=== PATIENT | male | born 1960 | race Hispanic/Latino ===

== ENCOUNTER → 2017-08-06 | Outpatient (CLI) | payer MEDICARE ==
[~2017-08-06] MED LIST: ACET1TAB12 PO; AMLO10TA2 PO; ASPI-1197 PO; CHOL100018 PO; CYAN10009 PO; FERR-82 PO; FOLI0.8T22 PO; FOLI1TAB15 PO; FURO40SO4 PO; INSU100I21 SQ; LISI30TA4 PO; LORA10CA9 PO; METO-409 PO; SERT50TA12 PO
== END | disposition home or self-care (01) ==
LOC: SHCH 11:20
PROVIDERS: ATTEND Internal Medicine Cardiovascular Disease
DX: I11.0 Hypertensive heart disease with heart failure (principal); I50.9 Heart failure, unspecified; I42.9 Cardiomyopathy, unspecified
CPT/HCPCS: 93306

== ENCOUNTER 2017-08-08 11:20 | Inpatient (IN) | payer MEDICARE ==
[~2017-08-08] VITALS: Ht 157.5 cm; Wt 83.6 kg
[2017-08-08 11:50] VITALS: BP 154/82
[2017-08-08] MEDS ORDERED: FOLI0.8T22 PO (12:29)
[2017-08-08] MEDS ORDERED: CHOL100018 PO (12:30)
[2017-08-08] MEDS ORDERED: ACETAMINOPHEN 325 MG TAB PO PRN (12:30)
[2017-08-08] MEDS ORDERED: GLUCAGON 1MG KIT 1 MG ML IM PRN (12:30)
[2017-08-08] MEDS ORDERED: DEXTROSE 50%-WATER 50 ML DISP.SYRIN IV PRN (12:30)
[2017-08-08] MEDS ORDERED: METO-409 PO (12:31)
[2017-08-08] MEDS ORDERED: AMLO10TA2 PO (12:32)
[2017-08-08] MEDS ORDERED: ASPI-1197 PO (12:33)
[2017-08-08] MEDS ORDERED: LISI30TA4 PO (12:34)
[2017-08-08] MEDS ORDERED: CYAN10009 PO (12:35)
[2017-08-08] MEDS ORDERED: FERR-82 PO (12:36)
[2017-08-08] MEDS ORDERED: FOLI1TAB15 PO (12:37)
[2017-08-08] MEDS ORDERED: LORA10CA9 PO (12:38)
[2017-08-08] MEDS ORDERED: FURO40SO4 PO (12:38)
[2017-08-08] MEDS ORDERED: SERT50TA12 PO (12:39)
[2017-08-08] MEDS ORDERED: INSU100I21 SQ (12:42)
[2017-08-08 12:49] LABS: HEMATOCRIT 22.9 % (42-54); MEAN CORPUSCULAR HGB CONC 35.7 g/dL (32.0-36.0); MEAN CORPUSCULAR VOLUME 83.9 fL (79-99); NUCLEATED RED BLOOD CELLS 0.1 % (0.0-0.19); PLATELET COUNT (AUTO) 154 K/uL (130-400); RED BLOOD CELL COUNT(AUTO) 2.73 MIL/uL (4.50-6.20); RED CELL DISTRIBUTION WIDTH 27.5 % (11.0-15.5); WHITE BLOOD COUNT (AUTO) 6.4 K/uL (4.8-10.8)
[2017-08-08 12:57] LABS: HEMOGLOBIN A1C 7.2 % (4.0-6.0)
[2017-08-08 13:00] LABS: CHOLESTEROL 93 mg/dL (<200); HDL CHOLESTEROL 43 mg/dL (29-71); LDL DIRECT 46 mg/dL (0-99); TRIGLYCERIDES 229 mg/dL (30-200)
[2017-08-08 13:01] LABS: ALBUMIN 3.5 g/dL (3.5-5.0); BILIRUBIN,TOTAL 1.6 mg/dL (0.2-1.0); TOTAL PROTEIN, SERUM 7.3 g/dL (6.0-8.3)
[2017-08-08 13:06] LABS: INR 0.95 (0.85-1.15); PARTIAL THROMBOPLASTIN TIME 23.8 SEC (26.3-35.5); PROTHROMBIN TIME 9.8 SEC (9.6-11.6)
[2017-08-08 14:33] LABS: RETICULOCYTE % (AUTO) 15.04 % (0.42-2.23)
[2017-08-08 15:08] LABS: % IRON SATURATION 37.4 % (30-44); FERRITIN 374 ng/mL (30-400); IRON, SERUM 64 mcg/dL (65-175); TOTAL IRON BINDING CAPACITY 171 mcg/dL (250-450)
[2017-08-08 16:00] VITALS: BP 172/81
[2017-08-08] MEDS: INSULIN HUMULIN R 100 UNIT/ML 3ML SQ SCH ×2 (16:29→21:00)
[2017-08-08 19:17] VITALS: BP 150/63
[2017-08-09] VITALS (23 sets, daily range): BP systolic 119–170; BP diastolic 59–77
[2017-08-09 03:59] LABS: MEAN CORPUSCULAR HEMOGLOBIN 30.5 pg (27.0-33.0); MEAN CORPUSCULAR HGB CONC 36.2 g/dL (32.0-36.0); MEAN CORPUSCULAR VOLUME 84.2 fL (79-99); NUCLEATED RED BLOOD CELLS 0.3 % (0.0-0.19); PLATELET COUNT (AUTO) 143 K/uL (130-400); RED BLOOD CELL COUNT(AUTO) 2.45 MIL/uL (4.50-6.20); RED CELL DISTRIBUTION WIDTH 27.3 % (11.0-15.5); WHITE BLOOD COUNT (AUTO) 7.9 K/uL (4.8-10.8)
[2017-08-09 04:07] LABS: CREATININE 1.8 mg/dL (0.5-1.5); POTASSIUM 4.1 mmol/L (3.5-5.1)
[2017-08-09 04:10] LABS: HEMATOCRIT 20.6 % (42-54)
[2017-08-09] MEDS: INSULIN HUMULIN R 100 UNIT/ML 3ML SQ SCH ×7 (06:14→20:28)
[2017-08-09] MEDS ORDERED: CEFUROXIME 1.5GM+NS 100ML 100 ML IV SCH (07:00)
[2017-08-09] MEDS ORDERED: HYDRALAZINE HCL 20 MG/ML VIAL IV PRN (07:45)
[2017-08-09] MEDS ORDERED: POTASSIUM CHLORIDE 20 MEQ ERTAB PO PRN (07:45)
[2017-08-09] MEDS ORDERED: LACTULOSE 20 GM/30 ML UDCUP PO PRN (07:45)
[2017-08-09] MEDS ORDERED: MORPHINE SULFATE 2 MG/ML 1ML SYG IV PRN (07:45)
[2017-08-09] MEDS ORDERED: POTASSIUM CHLORIDE 10% ELIXIR 20 MEQ/15 ML UDCUP PO PRN (07:45)
[2017-08-09] MEDS ORDERED: NITROGLYCERIN 0.4 MG SL TAB SL PRN (07:45)
[2017-08-09] MEDS ORDERED: GUAIFENESIN-DM 200/20 MG 10 ML PO PRN (07:45)
[2017-08-09] MEDS ORDERED: ACETAMINOPHEN 325 MG TAB PO PRN ×2 (07:45)
[2017-08-09] MEDS ORDERED: POTASSIUM CHLORIDE 20MEQ/100ML 100 ML IV PRN (07:45)
[2017-08-09] MEDS ORDERED: LIDOCAINE HCL-MPF 1% 2ML VIAL IVP PRN (07:45)
[2017-08-09] MEDS ORDERED: ONDANSETRON HCL 4 MG/2 ML VIAL IV PRN (07:45)
[2017-08-09] MEDS ORDERED: MAG HYDROX/AL HYDROX/SIMETH ES 30 ML SUSP UDCUP PO PRN (07:45)
[2017-08-09 08:27] LABS: INR 0.99 (0.85-1.15); PARTIAL THROMBOPLASTIN TIME 24.5 SEC (26.3-35.5); PROTHROMBIN TIME 10.2 SEC (9.6-11.6)
[2017-08-09] MEDS: CEFUROXIME SODIUM 1.5 GM VIAL IVP SCH ×2 (08:30→10:30)
[2017-08-09] MEDS ORDERED: SODIUM CHLORIDE 0.9% 1000ML 1,000 ML IV ONE (08:42)
[2017-08-09] MEDS: AMLODIPINE BESYLATE 5 MG TAB PO SCH (09:00)
[2017-08-09] MEDS: FOLIC ACID 1 MG TABLET PO SCH (09:00)
[2017-08-09] MEDS: METOPROLOL TARTRATE 50 MG TAB PO SCH ×2 (09:00→19:41)
[2017-08-09] MEDS: FAMOTIDINE 20MG TAB 20 MG TAB PO SCH ×2 (09:00→19:41)
[2017-08-09] MEDS: FERROUS SULFATE 325 MG TABLET.DR PO SCH (09:00)
[2017-08-09] MEDS ORDERED: PROPOFOL 10 MG/ML 20ML VIAL IV ONE (10:34)
[2017-08-09] MEDS ORDERED: FENTANYL CITRATE PF 50 MCG/1 ML 2ML VIAL ONE (10:36)
[2017-08-09] MEDS ORDERED: BACITRACIN 50,000 UNIT VIAL ONE (10:46)
[2017-08-09] MEDS ORDERED: THROMBIN-JMI 5000 UNIT/VIAL TP ONE (10:47)
[2017-08-09] MEDS ORDERED: BUPIVACAINE/PF 0.25% 30ML VIAL IJ ONE (11:01)
[2017-08-09] MEDS ORDERED: OCTYL 2-CYANOACRYLATE 1 EACH TP ONE (11:06)
[2017-08-09] MEDS ORDERED: MORPHINE SULFATE 4 MG/1ML SYG IVP PRN (12:45)
[2017-08-09 12:53] LABS: APPEARANCE BODY FLUID CLEAR (CLEAR); COLOR,BODY FLUID YELLOW (LT YELLOW); SPECIMENTYPE,BODY FLUID PERICARDIAL; TOTAL VOLUME,BODY FLUID 50 mL
[2017-08-09 12:54] LABS: BODY FLUID RBC 413 /cu. mm.; BODY FLUID WBC 443 /cu. mm.
[2017-08-09 13:40] LABS: BF LYMPHOCYTE 86 %; BF MESOTHELIAL 11 %; BF MONOCYTE 2 %
[2017-08-09 13:46] LABS: AMYLASE,BODY FLUID 13 U/L
[2017-08-09] MEDS: ACETAMINOPHEN-CODEINE 300/30MG TAB PO PRN (17:09)
[2017-08-09] MEDS: TRAMADOL HCL 50 MG TABLET PO PRN ×2 (19:42→20:34)
[2017-08-10] VITALS (24 sets, daily range): BP systolic 87–135; BP diastolic 41–72
[2017-08-10] MEDS: ACETAMINOPHEN-CODEINE 300/30MG TAB PO PRN (01:13)
[2017-08-10 03:47] LABS: HEMATOCRIT 24.8 % (42-54); MEAN CORPUSCULAR HEMOGLOBIN 28.9 pg (27.0-33.0); MEAN CORPUSCULAR HGB CONC 34.4 g/dL (32.0-36.0); MEAN CORPUSCULAR VOLUME 83.8 fL (79-99); NUCLEATED RED BLOOD CELLS 0.1 % (0.0-0.19); PLATELET COUNT (AUTO) 175 K/uL (130-400); RED BLOOD CELL COUNT(AUTO) 2.96 MIL/uL (4.50-6.20); RED CELL DISTRIBUTION WIDTH 26.9 % (11.0-15.5); WHITE BLOOD COUNT (AUTO) 12.8 K/uL (4.8-10.8)
[2017-08-10 03:55] LABS: CREATININE 1.7 mg/dL (0.5-1.5); POTASSIUM 4.6 mmol/L (3.5-5.1)
[2017-08-10] MEDS: INSULIN HUMULIN R 100 UNIT/ML 3ML SQ SCH ×7 (05:43→21:00)
[2017-08-10] MEDS: TRAMADOL HCL 50 MG TABLET PO PRN ×2 (05:49→12:58)
[2017-08-10] MEDS: SERTRALINE HCL 50 MG TABLET PO SCH (10:37)
[2017-08-10] MEDS: METOPROLOL TARTRATE 50 MG TAB PO SCH ×2 (10:37→21:04)
[2017-08-10] MEDS: FAMOTIDINE 20MG TAB 20 MG TAB PO SCH ×2 (10:37→21:04)
[2017-08-10] MEDS: FERROUS SULFATE 325 MG TABLET.DR PO SCH (10:37)
[2017-08-10] MEDS: LORATADINE 10 MG TABLET PO SCH (10:38)
[2017-08-10] MEDS: FOLIC ACID 1 MG TABLET PO SCH (10:38)
[2017-08-10] MEDS: AMLODIPINE BESYLATE 5 MG TAB PO SCH (10:38)
[2017-08-10] MEDS: INSULIN GLARGINE 100 UNITS/ML 10 ML VIAL SQ SCH (10:39)
[2017-08-11] VITALS (15 sets, daily range): BP systolic 96–163; BP diastolic 48–75
[2017-08-11 04:17] LABS: HEMATOCRIT 22.5 % (42-54); MEAN CORPUSCULAR HEMOGLOBIN 30.5 pg (27.0-33.0); MEAN CORPUSCULAR HGB CONC 36.4 g/dL (32.0-36.0); MEAN CORPUSCULAR VOLUME 83.8 fL (79-99); PLATELET COUNT (AUTO) 184 K/uL (130-400); RED BLOOD CELL COUNT(AUTO) 2.68 MIL/uL (4.50-6.20); RED CELL DISTRIBUTION WIDTH 27.2 % (11.0-15.5); WHITE BLOOD COUNT (AUTO) 13.7 K/uL (4.8-10.8)
[2017-08-11 04:26] LABS: POTASSIUM 5.4 mmol/L (3.5-5.1)
[2017-08-11] MEDS: INSULIN HUMULIN R 100 UNIT/ML 3ML SQ SCH ×4 (05:46→22:11)
[2017-08-11] MEDS: METOPROLOL TARTRATE 50 MG TAB PO SCH ×2 (09:14→22:02)
[2017-08-11] MEDS: FAMOTIDINE 20MG TAB 20 MG TAB PO SCH ×2 (09:14→22:02)
[2017-08-11] MEDS: LORATADINE 10 MG TABLET PO SCH (09:14)
[2017-08-11] MEDS: AMLODIPINE BESYLATE 5 MG TAB PO SCH (09:14)
[2017-08-11] MEDS: SERTRALINE HCL 50 MG TABLET PO SCH (09:14)
[2017-08-11] MEDS: FOLIC ACID 1 MG TABLET PO SCH (09:14)
[2017-08-11] MEDS: FERROUS SULFATE 325 MG TABLET.DR PO SCH (09:14)
[2017-08-11] MEDS: INSULIN GLARGINE 100 UNITS/ML 10 ML VIAL SQ SCH (09:15)
[2017-08-11 12:09] LABS: CREATININE 2.9 mg/dL (0.5-1.5); POTASSIUM 5.5 mmol/L (3.5-5.1)
[2017-08-11] MEDS ORDERED: SODIUM POLYSTYRENE SULFONATE 15 GM/60 ML ML PO SCH (15:00)
[2017-08-12 03:46] VITALS: BP 118/60
[2017-08-12 04:16] LABS: MEAN CORPUSCULAR HEMOGLOBIN 29.1 pg (27.0-33.0); MEAN CORPUSCULAR HGB CONC 35.2 g/dL (32.0-36.0); MEAN CORPUSCULAR VOLUME 82.8 fL (79-99); NUCLEATED RED BLOOD CELLS 0.1 % (0.0-0.19); PLATELET COUNT (AUTO) 131 K/uL (130-400); RED BLOOD CELL COUNT(AUTO) 1.98 MIL/uL (4.50-6.20); RED CELL DISTRIBUTION WIDTH 26.9 % (11.0-15.5)
[2017-08-12 04:31] LABS: CREATININE 2.8 mg/dL (0.5-1.5); POTASSIUM 4.4 mmol/L (3.5-5.1)
[2017-08-12 04:32] LABS: HEMATOCRIT 16.4 % (42-54)
[2017-08-12 06:32] LABS: EOSINOPHILS % (MANUAL) 4 % (1-6); LYMPHOCYTES % (MANUAL) 11 % (22-44); MONOCYTES % (MANUAL) 10 % (2-9); SEGMENTED NEUTROPHILS % 75 % (40-70)
[2017-08-12 06:33] LABS: MAN.DIFF COMMENT-IMPRESSION MANUAL DIFFERENTIAL; PLATELET MORPHOLOGY COMMENT ADEQUATE
[2017-08-12] MEDS: INSULIN HUMULIN R 100 UNIT/ML 3ML SQ SCH ×4 (06:54→21:00)
[2017-08-12 07:00] VITALS: BP 126/55
[2017-08-12] MEDS ORDERED: SODIUM CHLORIDE 0.9% 250 ML IV ONE (08:37)
[2017-08-12] MEDS ORDERED: COMPOUND IV MISC 1 EACH IVSOLN MISC PRN (10:00)
[2017-08-12] MEDS: FOLIC ACID 1 MG TABLET PO SCH (10:01)
[2017-08-12] MEDS: LORATADINE 10 MG TABLET PO SCH (10:02)
[2017-08-12] MEDS: FAMOTIDINE 20MG TAB 20 MG TAB PO SCH ×2 (10:02→22:38)
[2017-08-12] MEDS: SERTRALINE HCL 50 MG TABLET PO SCH (10:02)
[2017-08-12] MEDS: ACETAMINOPHEN-CODEINE 300/30MG TAB PO PRN (10:02)
[2017-08-12] MEDS: METOPROLOL TARTRATE 50 MG TAB PO SCH ×2 (10:03→22:38)
[2017-08-12 11:00] VITALS: BP 108/48
[2017-08-12] MEDS: INSULIN GLARGINE 100 UNITS/ML 10 ML VIAL SQ SCH (13:16)
[2017-08-12] MEDS: IRON SUCROSE COMPLEX 100 MG in SODIUM CHLORIDE 0.9% 50 ML IV SCH (13:17)
[2017-08-12 16:00] VITALS: BP 113/55
[2017-08-12 19:59] VITALS: BP 139/69
[2017-08-12 23:29] VITALS: BP 133/65
[2017-08-13 03:55] VITALS: BP 126/64
[2017-08-13 04:17] LABS: HEMATOCRIT 26.4 % (42-54); MEAN CORPUSCULAR HEMOGLOBIN 30.6 pg (27.0-33.0); MEAN CORPUSCULAR HGB CONC 35.8 g/dL (32.0-36.0); MEAN CORPUSCULAR VOLUME 85.6 fL (79-99); NUCLEATED RED BLOOD CELLS 0.1 % (0.0-0.19); PLATELET COUNT (AUTO) 174 K/uL (130-400); RED BLOOD CELL COUNT(AUTO) 3.08 MIL/uL (4.50-6.20); RED CELL DISTRIBUTION WIDTH 22.6 % (11.0-15.5); WHITE BLOOD COUNT (AUTO) 8.6 K/uL (4.8-10.8)
[2017-08-13 04:18] LABS: CREATININE 2.1 mg/dL (0.5-1.5); POTASSIUM 4.8 mmol/L (3.5-5.1)
[2017-08-13] MEDS: INSULIN HUMULIN R 100 UNIT/ML 3ML SQ SCH ×2 (06:42→12:45)
[2017-08-13 08:00] VITALS: BP 153/76
[2017-08-13] MEDS ORDERED: ACET1TAB12 PO (09:27)
[2017-08-13] MEDS: IRON SUCROSE COMPLEX 100 MG in SODIUM CHLORIDE 0.9% 50 ML IV SCH (09:55)
[2017-08-13] MEDS: METOPROLOL TARTRATE 50 MG TAB PO SCH (09:55)
[2017-08-13] MEDS: FOLIC ACID 1 MG TABLET PO SCH (09:55)
[2017-08-13] MEDS: FAMOTIDINE 20MG TAB 20 MG TAB PO SCH (09:55)
[2017-08-13] MEDS: SERTRALINE HCL 50 MG TABLET PO SCH (09:55)
[2017-08-13] MEDS: LORATADINE 10 MG TABLET PO SCH (09:55)
[2017-08-13 11:33] VITALS: BP 185/80
[2017-08-13] MEDS: INSULIN GLARGINE 100 UNITS/ML 10 ML VIAL SQ SCH (11:40)
== END 2017-08-13 12:50 | disposition home or self-care (01) | DRG 271 ==
LOC: EDH 11:20 → 2BH 11:37 → 2AH 08-11 14:11
PROVIDERS: ADMIT Internal Medicine; ATTEND Internal Medicine
PROC: 0W9D0ZZ Drainage of Pericardial Cavity, Open Approach (ICD-10-PCS; 2017-08-09)
PROC: 30233N1 Transfusion of Nonautologous Red Blood Cells into Peripheral Vein, Percutaneous Approach (ICD-10-PCS; 2017-08-09)
PROC: 02BN0ZX Excision of Pericardium, Open Approach, Diagnostic (ICD-10-PCS; principal; 2017-08-09 10:31)
DX: I31.3 Pericardial effusion (noninflammatory) (principal); I13.0 Hypertensive heart and chronic kidney disease with heart failure and stage 1 through stage 4 chronic kidney disease, or unspecified chronic kidney disease; I31.4 Cardiac tamponade; E11.22 Type 2 diabetes mellitus with diabetic chronic kidney disease; I50.22 Chronic systolic (congestive) heart failure; I42.9 Cardiomyopathy, unspecified; D64.9 Anemia, unspecified; E11.65 Type 2 diabetes mellitus with hyperglycemia; E11.69 Type 2 diabetes mellitus with other specified complication; E78.5 Hyperlipidemia, unspecified; F32.9 Major depressive disorder, single episode, unspecified; N18.3 Chronic kidney disease, stage 3 (moderate); Z79.4 Long term (current) use of insulin; Z82.49 Family history of ischemic heart disease and other diseases of the circulatory system
CPT/HCPCS: 36415; 36430; 71045; 80048; 80053; 80061; 82150; 82607; 82728; 82746; 82945; 82948; 83036; 83615; 83986; 84157; 85007; 85014; 85018; 85027; 85610; 85730; 86850; 86900; 86901; 86922; 87071; 87076; 87116; 87205; 87206; 88108; 88305; 88313; 89051; 93306; A7048; J0360; J0697; J1756; J1815; J2704; J3010; J3490; J7030; J7040; P9016

== ENCOUNTER → 2017-10-05 | Outpatient (CLI) | payer MEDICARE ==
[~2017-10-05] MED LIST changes: -LISI30TA4 PO
== END | disposition home or self-care (01) ==
LOC: SHCH 09:10
PROVIDERS: ATTEND Internal Medicine Cardiovascular Disease
DX: I31.3 Pericardial effusion (noninflammatory) (principal)
CPT/HCPCS: 93306